=== PATIENT | female | born 1965 | race American Indian/Alaskan Native ===

== ENCOUNTER 2021-01-02 11:31 | Emergency (ER) | payer OTHER ==
--- NOTE | 2021-01-02 12:03 | Emergency Department Report ---
ED General Adult HPI - General Chief complaint: Weakness Stated complaint: weak PUI?: Yes Time Seen by Provider: 01/02/21 11:37 Source: patient, EMS (Verbal report received from emergency medical services. EMS documentation not available at time of chart dictation ), RN notes reviewed Mode of arrival: Stretcher Limitations: No Limitations - History of Present Illness Initial comments: The patient was evaluated in the emergency department for symptoms described in the history of present illness. He/she was evaluated in the context of the global COVID-19 pandemic, which necessitated consideration that the patient might be at risk for infection with the virus that causes COVID-19. Institutional protocols and algorithms that pertain to the evaluation of patients at risk for COVID-19 are in a state of rapid change based on information released by regulatory bodies including the CDC and federal and state organizations. These policies and algorithms were followed during the patient's care in the emergency department. Please note that these policies, procedures and recommendations changed on a rapid basis. Primary CARE doctor: Avery Past medical history: Hypertension, obesity, obstructive sleep apnea, noncompli ant with CPAP, not currently on home oxygen, reports having had Covid vaccination x2, questionable normal pressure hydrocephalus. During entire history and physical examination, I had on complete personal protective equipment. This is a 55-year-old female. She is not known to myself previously. She is brought to the hospital by emergency medical services. 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 The patient reports that her coworkers contacted 911 "because I looked weak." The patient complains of generalized weakness. She denies physical pain. She states she has developed shortness of breath since walking out to the EMS ambulance. The patient denies headache, neck pain, chest pain, abdominal pain, hematemesis, bright red blood per rectum. She reports that she had "blurry vision", for "a few seconds", at around 7:00 AM, "when all of my symptoms started." However, she believes that her vision is back to baseline. The patient denies loss of taste and smell. She denies urinary symptoms. She denies hematemesis and bright red blood per rectum. The patient states she feels generally weak, and short of breath. She denies DVT and pulmonary embolism risk factors. -: Gradual Consistency: constant Improves with: rest Worsens with: movement - Related Data Allergies Allergy/AdvReac Type Severity Reaction Status Date / Time acetaminophen [From Midrin] Allergy Severe Hives Verified 01/02/21 12:45 dichloralphenazone Allergy Severe Hives Verified 01/02/21 12:45 [From Midrin] isometheptene [From Midrin] Allergy Severe Hives Verified 01/02/21 12:45 ED Review of Systems ROS: Stated complaint: POSSIBLE STROKE Other details as noted in HPI Constitutional: malaise, weakness. denies: fever Eyes: vision change. denies: eye discharge ENT: denies: epistaxis Respiratory: shortness of breath Cardiovascular: denies: chest pain Gastrointestinal: denies: abdominal pain, hematemesis, melena, hematochezia Genitourinary: denies: dysuria Musculoskeletal: denies: back pain Neurological: weakness. denies: headache Hematological/Lymphatic: denies: easy bleeding ED Physical Exam - General Limitations: No Limitations General appearance: alert, in no apparent distress, obese - Head Head exam: Present: atraumatic, normocephalic - Eye Eye exam: Present: normal appearance, PERRL, EOMI, other (Visual acuity intact to finger counting, color perception, reading at a close distance). Absent: nystagmus - ENT ENT exam: Present: normal exam, normal orophraynx, mucous membranes moist, normal external ear exam - Neck Neck exam: Present: normal inspection, full ROM. Absent: tenderness, menin gismus - Respiratory Respiratory exam: Present: other (Pulmonary auscultation not performed secondary to lack of disposable stethoscope, and PPE conservation strategy). Absent: stridor - Cardiovascular Cardiovascular Exam: Present: other (Cardiac auscultation not performed secondary to lack of disposable stethoscope, and PPE conservation strategy) - GI/Abdominal GI/Abdominal exam: Present: soft. Absent: distended, tenderness, guarding, rebound, rigid, pulsatile mass - Extremities Exam Extremities exam: Present: normal inspection, full ROM, other (2+ pulses noted in the bilateral upper and lower extremities. There is no palpable cord. negative Homans sign. Muscular compartments are soft. The pelvis is stable.). Absent: pedal edema, calf tenderness - Back Exam Back exam: Present: normal inspection, full ROM. Absent: tenderness, CVA tenderness (R), CVA tenderness (L), paraspinal tenderness, vertebral tenderness - Neurological Exam Neurological exam: Present: alert, oriented X3, other (No facial droop. Tongue midline. Extraocular movements intact bilaterally. Facial sensation intact to light touch in V1, V2, V3 distribution bilaterally. 5 and a 5 strength in 4 extremities. Sensation intact to light touch in 4 extremities.) - Psychiatric Psychiatric exam: Present: anxious - Skin Skin exam: Present: warm, dry, intact, normal color. Absent: rash ED Course Vital Signs 01/02/21 01/02/21 01/02/21 11:35 12:27 12:30 Temperature 98.2 F Pulse Rate 71 72 72 Respiratory 13 14 10 L Rate Blood Pressure 156/89 156/89 Blood Pressure [Left] O2 Sat by Pulse 100 100 100 Oximetry 01/02/21 01/02/21 01/02/21 12:45 13:01 13:31 Temperature Pulse Rate 74 80 72 Respiratory 15 12 12 Rate Blood Pressure 156/89 156/89 156/89 Blood Pressure [Left] O2 Sat by Pulse 100 100 100 Oximetry 01/02/21 01/02/21 01/02/21 14:16 14:32 16:01 Temperature Pulse Rate 74 Respiratory 12 11 L Rate Blood Pressure 156/89 151/93 Blood Pressure 151/93 [Left] O2 Sat by Pulse 100 100 Oximetry 01/02/21 01/02/21 16:56 17:00 Temperature Pulse Rate 64 Respiratory 10 L Rate Blood Pressure 151/93 165/95 Blood Pressure [Left] O2 Sat by Pulse 100 100 Oximetry - Reevaluation(s) Reevaluation #1: 01/02/21 12:01 Differential diagnosis, including but not limited to: Hypoxemia, hypercarbia, pneumonia, pulmonary embolism, COVID-19, normal pressure hydrocephalus, in tracranial lesion, acute coronary syndrome, electrolyte derangement, dehydration Assessment and plan: 55-year-old female with a complaint of generalized weakness, transient visual change, not sure if monocular or binocular, but subjectively feels that vision back to baseline, without chest pain, DVT or pulmonary embolism risk factors, who reports noncompliance with CPAP, having had 2 COVID-19 vaccinations, generalized malaise and fatigue, without headache or neck pain. Place patient on isolation. Obtain CT scan of the brain, x-ray of the chest, plus minus CT angiogram of the chest, depending on D-dimer, and x-ray results. Obtain arterial blood gas on room air, administer supplemental oxygen if necessary, and appropriate laboratory studies. EKG abnormal without prior for comparison, but not consistent with STEMI. Reassess after initial data points. Anticipate admission. Have discussed this plan of care with the patient, who verbalized understanding. Reevaluation #2: 01/02/21 14:57 Please note that fever, tachycardia, hypotension documented by nursing team in error. As per nursing report, this patient has not spiked a fever or become tachycardic. 01/02/21 16:30 Have discussed the case with [facility] physician, Dr. Chua, with abnormal EKG, nonspecific symptoms, moderate risk for major adverse cardiac event as per heart score, we would recommend admission for diagnostic evaluation, and supportive care. Nursing team informed me that the patient ambulated with a steady gait, but was very short of breath while ambulating. Arterial blood gas demonstrates an essentially uncompensated respiratory alkalosis. 01/02/21 17:55 Awaiting callback and bed assignment from [facility]. Upon our last discussion, they informed us that they are currently waiting to hear back from [facility] regarding bed availability. Reevaluation #3: 01/02/21 18:57 Called [facility] with request for update. Have discussed with their physician coordinator, Dr Trotter. She advises me that it is unlikely that [facility] has any beds and would not be able to accommodate with an admission. She believes at [facility] may have beds, and she is waiting to hear back from them definitively. Have discussed this patient's life of stable here in the emergency room. Reevaluation #4: 01/02/21 19:33 Patient updated on plan of care. She is amenable to this plan of care. We are awaiting bed assignment from [facility]. She is asking for headache medicine, anxiety medicine, and is asking to eat. Orders initiated. Patient may eat. Care be transferred to the oncoming ER physician, to follow-up on [facility] bed ass ignment. ED Medical Decision Making - Lab Data Result diagrams: 01/02/21 12:30 01/02/21 12:30 Lab Results 01/02/21 01/02/21 01/02/21 Range/Units 12:15 12:30 12:30 WBC 8.1 (4.5-11.0) K/mm3 RBC 3.10 L (3.65-5.03) M/mm3 Hgb 12.5 (10.1-14.3) gm/dl Hct 34.6 (30.3-42.9) % MCV 112 H (79-97) fl MCH 40 H (28-32) pg MCHC 36 H (30-34) % RDW 13.9 (13.2-15.2) % Plt Count 290 (140-440) K/mm3 Lymph % (Auto) 43.1 H (13.4-35.0) % [place] % (Auto) 6.2 (0.0-7.3) % Eos % (Auto) 0.8 (0.0-4.3) % Baso % (Auto) 0.4 (0.0-1.8) % Lymph # (Auto) 3.5 (1.2-5.4) K/mm3 [place] # (Auto) 0.5 (0.0-0.8) K/mm3 Eos # (Auto) 0.1 (0.0-0.4) K/mm3 Baso # (Auto) 0.0 (0.0-0.1) K/mm3 Seg Neutrophils % 49.5 (40.0-70.0) % Seg Neutrophils # 4.0 (1.8-7.7) K/mm3 PT (12.2-14.9) Sec. INR (0.87-1.13) APTT (24.2-36.6) Sec. Thrombin Time (15.1-19.6) Sec. D-Dimer (0-234) ng/mlDDU ABG pH 7.613 H (7.320-7.450) POC ABG pCO2 20.2 L (32.0-48.0) mmHg ABG pCO2 mm Hg ABG pO2 (80.0-90.0) mm Hg POC ABG HCO3 20 ABG HCO3 (20.0-26.0) mmol/L ABG O2 Saturation 98.9 (0-100) ABG O2 Content (0.0-44) POC ABG Base Excess 0.6 ABG Base Excess (-2.0-3.0) mmol/L ABG Hemoglobin 12.7 (12.0-17.5) ABG Oxyhemoglobin 98.1 H (94-98) ABG Carboxyhemoglobin (0.0-5.0) % ABG Methemoglobin 0.3 (0.0-1.5) ABG Sodium 137.5 (136.0-145.0) mmol/L ABG Potassium 3.3 L (3.40-4.50) mmol/L ABG Chloride 103.0 (98-107) mmol/L ABG Glucose 105 H (65-95) mg/dL Oxyhemoglobin (95.0-99.0) % Carboxyhemoglobin 0.5 (0.5-1.5) FiO2 % FiO2 % 21 Lactic Acid (0.7-2.0) mmol/L CK-MB (CK-2) (0.0-4.0) ng/mL NT-Pro-B Natriuret Pep (0-900) pg/mL Arterial Blood Glucose 105 H (65-95) mg/dL Arterial Blood Ionized Calcium 4.7 (4.6-5.3) mg/dL Urine Color Yellow (Yellow) Urine Turbidity Clear (Clear) Urine pH 7.0 (5.0-7.0) Ur Specific [place] 1.006 (1.003-1.030) Urine Protein <15 mg/dl (Negative) mg/dL Urine Glucose (UA) Neg (Negative) mg/dL Urine Ketones 20 (Negative) mg/dL Urine Blood Neg (Negative) Urine Nitrite Neg (Negative) Urine Bilirubin Neg (Negative) Urine Urobilinogen 2.0 (<2.0) mg/dL Ur Leukocyte Esterase Neg (Negative) Urine WBC (Auto) 1.0 (0.0-6.0) /HPF Urine RBC (Auto) 2.0 (0.0-6.0) /HPF U Epithel Cells (Auto) 1.0 (0-13.0) /HPF Urine Bacteria (Auto) 1+ (Negative) /HPF Urine Mucus Few /HPF Plasma/Serum Alcohol (0-0.07) % 01/02/21 01/02/21 01/02/21 Range/Units 12:30 12:30 12:30 WBC (4.5-11.0) K/mm3 RBC (3.65-5.03) M/mm3 Hgb (10.1-14.3) gm/dl Hct (30.3-42.9) % MCV (79-97) fl MCH (28-32) pg MCHC (30-34) % RDW (13.2-15.2) % Plt Count (140-440) K/mm3 Lymph % (Auto) (13.4-35.0) % [place] % (Auto) (0.0-7.3) % Eos % (Auto) (0.0-4.3) % Baso % (Auto) (0.0-1.8) % Lymph # (Auto) (1.2-5.4) K/mm3 [place] # (Auto) (0.0-0.8) K/mm3 Eos # (Auto) (0.0-0.4) K/mm3 Baso # (Auto) (0.0-0.1) K/mm3 Seg Neutrophils % (40.0-70.0) % Seg Neutrophils # (1.8-7.7) K/mm3 PT 13.8 (12.2-14.9) Sec. INR 1.07 (0.87-1.13) APTT 27.4 (24.2-36.6) Sec. Thrombin Time 16.9 (15.1-19.6) Sec. D-Dimer < 135.00 (0-234) ng/mlDDU ABG pH (7.320-7.450) POC ABG pCO2 (32.0-48.0) mmHg ABG pCO2 mm Hg ABG pO2 (80.0-90.0) mm Hg POC ABG HCO3 ABG HCO3 (20.0-26.0) mmol/L ABG O2 Saturation (0-100) ABG O2 Content (0.0-44) POC ABG Base Excess ABG Base Excess (-2.0-3.0) mmol/L ABG Hemoglobin (12.0-17.5) ABG Oxyhemoglobin (94-98) ABG Carboxyhemoglobin (0.0-5.0) % ABG Methemoglobin (0.0-1.5) ABG Sodium (136.0-145.0) mmol/L ABG Potassium (3.40-4.50) mmol/L ABG Chloride (98-107) mmol/L ABG Glucose (65-95) mg/dL Oxyhemoglobin (95.0-99.0) % Carboxyhemoglobin (0.5-1.5) FiO2 % FiO2 % Lactic Acid 2.40 H* (0.7-2.0) mmol/L CK-MB (CK-2) 1.5 (0.0-4.0) ng/mL NT-Pro-B Natriuret Pep (0-900) pg/mL Arterial Blood Glucose (65-95) mg/dL Arterial Blood Ionized Calcium (4.6-5.3) mg/dL Urine Color (Yellow) Urine Turbidity (Clear) Urine pH (5.0-7.0) Ur Specific [place] (1.003-1.030) Urine Protein (Negative) mg/dL Urine Glucose (UA) (Negative) mg/dL Urine Ketones (Negative) mg/dL Urine Blood (Negative) Urine Nitrite (Negative) Urine Bilirubin (Negative) Urine Urobilinogen (<2.0) mg/dL Ur Leukocyte Esterase (Negative) Urine WBC (Auto) (0.0-6.0) /HPF Urine RBC (Auto) (0.0-6.0) /HPF U Epithel Cells (Auto) (0-13.0) /HPF Urine Bacteria (Auto) (Negative) /HPF Urine Mucus /HPF Plasma/Serum Alcohol (0-0.07) % 01/02/21 01/02/21 01/02/21 Range/Units 12:30 12:30 12:30 WBC (4.5-11.0) K/mm3 RBC (3.65-5.03) M/mm3 Hgb (10.1-14.3) gm/dl Hct (30.3-42.9) % MCV (79-97) fl MCH (28-32) pg MCHC (30-34) % RDW (13.2-15.2) % Plt Count (140-440) K/mm3 Lymph % (Auto) (13.4-35.0) % [place] % (Auto) (0.0-7.3) % Eos % (Auto) (0.0-4.3) % Baso % (Auto) (0.0-1.8) % Lymph # (Auto) (1.2-5.4) K/mm3 [place] # (Auto) (0.0-0.8) K/mm3 Eos # (Auto) (0.0-0.4) K/mm3 Baso # (Auto) (0.0-0.1) K/mm3 Seg Neutrophils % (40.0-70.0) % Seg Neutrophils # (1.8-7.7) K/mm3 PT (12.2-14.9) Sec. INR (0.87-1.13) APTT (24.2-36.6) Sec. Thrombin Time (15.1-19.6) Sec. D-Dimer (0-234) ng/mlDDU ABG pH 7.581 H (7.320-7.450) POC ABG pCO2 (32.0-48.0) mmHg ABG pCO2 21.3 mm Hg ABG pO2 138.2 H (80.0-90.0) mm Hg POC ABG HCO3 ABG HCO3 19.6 L (20.0-26.0) mmol/L ABG O2 Saturation 99.0 (0-100) ABG O2 Content 17.2 (0.0-44) POC ABG Base Excess ABG Base Excess -0.5 (-2.0-3.0) mmol/L ABG Hemoglobin 12.4 (12.0-17.5) ABG Oxyhemoglobin (94-98) ABG Carboxyhemoglobin 1.2 (0.0-5.0) % ABG Methemoglobin 0.4 (0.0-1.5) ABG Sodium (136.0-145.0) mmol/L ABG Potassium (3.40-4.50) mmol/L ABG Chloride (98-107) mmol/L ABG Glucose (65-95) mg/dL Oxyhemoglobin 97.4 (95.0-99.0) % Carboxyhemoglobin (0.5-1.5) FiO2 21 % FiO2 % Lactic Acid (0.7-2.0) mmol/L CK-MB (CK-2) (0.0-4.0) ng/mL NT-Pro-B Natriuret Pep 75.31 (0-900) pg/mL Arterial Blood Glucose (65-95) mg/dL Arterial Blood Ionized Calcium (4.6-5.3) mg/dL Urine Color (Yellow) Urine Turbidity (Clear) Urine pH (5.0-7.0) Ur Specific [place] (1.003-1.030) Urine Protein (Negative) mg/dL Urine Glucose (UA) (Negative) mg/dL Urine Ketones (Negative) mg/dL Urine Blood (Negative) Urine Nitrite (Negative) Urine Bilirubin (Negative) Urine Urobilinogen (<2.0) mg/dL Ur Leukocyte Esterase (Negative) Urine WBC (Auto) (0.0-6.0) /HPF Urine RBC (Auto) (0.0-6.0) /HPF U Epithel Cells (Auto) (0-13.0) /HPF Urine Bacteria (Auto) (Negative) /HPF Urine Mucus /HPF Plasma/Serum Alcohol < 0.01 (0-0.07) % Vital Signs 01/02/21 01/02/21 01/02/21 11:35 12:27 12:30 Temperature 98.2 F Pulse Rate 71 72 72 Respiratory 13 14 10 L Rate Blood Pressure 156/89 156/89 O2 Sat by Pulse 100 100 100 Oximetry 01/02/21 12:45 Temperature Pulse Rate 74 Respiratory 15 Rate Blood Pressure 156/89 O2 Sat by Pulse 100 Oximetry - EKG Data -: EKG Interpreted by Co EKG shows normal: sinus rhythm Rate: normal - EKG Data When compared to previous EKG there are: previous EKG unavailable 01/02/21 12:03 EKG interpreted at 11: 35 Sinus rhythm, 76 bpm. Normal axis, left ventricular hypertrophy, QTC prolonged, poor R wave progression. This is an abnormal EKG. This is not a STEMI. There is no prior EKG available for comparison. - Radiology Data Radiology results: pending, report reviewed, image reviewed [facility] [address] [place] [address] XRay Report Signed Patient: ABHIJIT ALVARADO MR#: [id number] 6 : 1965 Acct:[id number] Age/Sex: 55 / F ADM Date: 01/02/21 Loc: ED Attending Dr: Ordering Physician: YOLANDE DEL VALLE MD Date of Service: 01/02/21 Procedure(s): XR chest 1V ap Accession Number(s): [id number] cc: YOLANDE DEL VALLE MD Fluoro Time In Minutes: CHEST 1 VIEW 01/02/2021 11:48 AM INDICATION / CLINICAL INFORMATION: Shortness of breath and weakness. COMPARISON: None available. FINDINGS: SUPPORT DEVICES: None. HEART / MEDIASTINUM: No significant abnormality. LUNGS / PLEURA: No significant pulmonary or pleural abnormality. No pneumothorax. ADDITIONAL FINDINGS: No significant additional findings. IMPRESSION: 1. No acute findings. Signer Name: Arvind Murphy MD Signed: 01/02/2021 1:01 PM Workstation Name: [facility] [id number] Transcribed By: NEYDA Dictated By: Arvind Murphy MD Electronically Authenticated By: Arvind Murphy MD Signed Date/Time: 01/02/21 130 DD/ 1301 CT head/brain wo con INDICATION: Weakness, blurry vision. TECHNIQUE: Routine CT head without contrast. All CT scans at this location are performed using CT dose reduction for ALARA by means of automated exposure control. COMPARISON: None. FINDINGS: BRAIN / INTRACRANIAL CONTENTS: No acute hemorrhage, mass effect, midline shift, or hydrocephalus. No appreciable acute large territorial or lacunar infarct. No chronic infarct or focal atrophy. Normal brain volume and ventricular/sulcal size for age. ORBITS: No significant abnormality of visualized orbits. SINUSES / MASTOIDS: No significant abnormality of visualized sinuses and mastoid air cells. ADDITIONAL FINDINGS: None. IMPRESSION: 1. No acute intracranial abnormality. Signer Name: Arvind Murphy MD Signed: 01/02/2021 1:50 PM Workstation Name: [facility] [address] [id number] Cat Scan Report Signed Patient: ABHIJIT ALVARADO MR#: [id number] 6 : 1965 Acct:[id number] Age/Sex: 55 / F ADM Date: 01/02/21 Loc: ED Attending Dr: Ordering Physician: YOLANDE DEL VALLE MD Date of Service: 01/02/21 Procedure(s): CT angio chest Accession Number(s): [id number] cc: YOLANDE DEL VALLE MD CTA CHEST WITH CONTRAST INDICATION / CLINICAL INFORMATION: MAIN. TECHNIQUE: Axial CT images were obtained through the chest after injection of 100 cc of Omnipaque 350 IV contrast. 3 plane MIP and/or 3D reconstructions were produced. All CT scans at this location are performed using CT dose reduction for ALARA by means of automated exposure control. COMPARISON: None available. FINDINGS: PULMONARY ARTERIES: No pulmonary emboli. THORACIC AORTA: No significant abnormality. HEART: No significant abnormality. CORONARY ARTERY CALCIFICATION: None. MEDIASTINUM / GIRISH: No significant abnormality. PLEURA: No pleural effusion. No pneumothorax. LUNGS: No acute air space or interstitial disease. ADDITIONAL FINDINGS: None. UPPER ABDOMEN: There is cholelithiasis. SKELETAL STRUCTURES: No significant osseous abnormality. IMPRESSION: 1. No CT evidence for pulmonary embolism. 2. Cholelithiasis Signer Name: Vito Virgen MD Signed: 01/02/2021 3:01 PM Workstation Name: [id number] Transcribed By: SS Dictated By: Vito Virgen MD Electronically Authenticated By: Vito Virgen MD Signed Date/Time: 01/02/21 1501 DD/ 1456 Critical care attestation.: If time is entered above; I have spent that time in minutes in the direct care of this critically ill patient, excluding procedure time. ED Disposition Clinical Impression: Suspected 2019 novel coronavirus infection, Respiratory alkalosis, Obesity (BMI 30-39.9), Shortness of breath, Abnormal EKG, Visual disturbance [facility] Is pt being admited?: No Does the pt Need Aspirin: No Condition: Good Referrals: PAULETTE,AVERY [Other] - 3-5 Days Heart Score - HEART Score History: Slightly suspicious EKG: Non-specific Age: 45-65 Risk factors: > 3 risk factors or hx of atherosclerotic disease Troponin: < normal limit HEART Score: 4 - EKG Read Time Time EKG Completed: 11:35 EKG Read Time: 11:35 - Critical Actions Critical Actions: 4-6 pts:12-16.6% risk of adverse cardiac event. Should be admitted
[2021-01-02 12:35] LABS: ABG Base Excess -0.5 mmol/L (-2.0-3.0); ABG HCO3 19.6 mmol/L (20.0-26.0); ABG Methemoglobin 0.4 % (0.0-1.5); ABG PCO2 21.3 mm Hg; ABG PH 7.581 pH Units (7.350-7.450); ABG PO2 138.2 mm Hg (80.0-90.0)
[2021-01-02 13:00] LABS: Bacteria,Urine 1+ /HPF (Negative); Bilirubin,Urine NEG (Negative); Blood,Urine NEG (Negative); Color,Urine Yellow (Yellow); Mucus,Urine FEW /HPF; Protein,Urine <15 mg/dL mg/dL (Negative)
--- NOTE | 2021-01-02 13:05 | XRay Report ---
CHEST 1 VIEW 01/02/2021 11:48 AM INDICATION / CLINICAL INFORMATION: Shortness of breath and weakness. COMPARISON: None available. FINDINGS: SUPPORT DEVICES: None. HEART / MEDIASTINUM: No significant abnormality. LUNGS / PLEURA: No significant pulmonary or pleural abnormality. No pneumothorax. ADDITIONAL FINDINGS: No significant additional findings. IMPRESSION: 1. No acute findings. Signer Name: Arvind Murphy MD Signed: 01/02/2021 1:01 PM Workstation Name: [id number]
[2021-01-02 13:23] LABS: Basophils % (Auto) 0.4 % (0.0-1.8); Eosinophils # (Auto) 0.1 K/mm3 (0.0-0.4); Eosinophils % (Auto) 0.8 % (0.0-4.3); Hematocrit 34.6 % (30.3-42.9); Hemoglobin 12.5 gm/dl (10.1-14.3); Lymphocytes # (Auto) 3.5 K/mm3 (1.2-5.4); Lymphocytes % (Auto) 43.1 % (13.4-35.0); Mean Corpuscular HGB Conc 36 % (30-34); Mean Corpuscular Volume 112 fl (79-97); Monocytes # (Auto) 0.5 K/mm3 (0.0-0.8); Monocytes % (Auto) 6.2 % (0.0-7.3); Platelet Count 290 K/mm3 (140-440); Red Cell Distribution Width 13.9 % (13.2-15.2)
[2021-01-02 13:33] LABS: INR 1.07 (0.87-1.13)
[2021-01-02 13:34] LABS: Partial Thromboplastin Time 27.4 Sec. (24.2-36.6)
[2021-01-02 13:35] LABS: Thrombin Time 16.9 Sec. (15.1-19.6)
[2021-01-02 13:45] LABS: Creatine Kinase MB 1.5 ng/mL (0.0-4.0)
[2021-01-02 13:49] LABS: Alanine Aminotransferase 14 units/L (7-56); Albumin 4.4 g/dL (3.9-5); BUN/Creatinine Ratio 20; Blood Urea Nitrogen 20 mg/dL (7-17); Calcium 9.9 mg/dL (8.4-10.2); Hemolysis Index 16
[2021-01-02] MEDS ORDERED: SODIUM CHLORIDE 0.9% 500 ML 500 ML IV ONE (14:01)
[2021-01-02] MEDS ORDERED: SODIUM CHLORIDE 0.9% IV ONE (14:54)
[2021-01-02] MEDS ORDERED: cefTRIAXone/NS 2 GM/100 ML 2 GM/100 ML BAG IV ONE (14:54)
[2021-01-02] MEDS ORDERED: dexAMETHasone 4 MG/ML VIAL IV ONE (14:54)
--- NOTE | 2021-01-02 14:54 | Cat Scan Report ---
CT head/brain wo con INDICATION: Weakness, blurry vision. TECHNIQUE: Routine CT head without contrast. All CT scans at this location are performed using CT dos e reduction for ALARA by means of automated exposure control. COMPARISON: None. FINDINGS: BRAIN / INTRACRANIAL CONTENTS: No acute hemorrhage, mass effect, midline shift, or hydrocephalus. No appreciable acute large territorial or lacunar infarct. No chronic infarct or focal atrophy. Normal b rain volume and ventricular/sulcal size for age. ORBITS: No significant abnormality of visualized orbits. SINUSES / MASTOIDS: No significant abnormality of visualized sinuses and mastoid air cells. ADDITIONAL FINDINGS: None. IMPRESSION: 1. No acute intracranial abnormality. Signer Name: Arvind Murphy MD Signed: 01/02/2021 2:50 PM Workstation Name: [email or web address]
--- NOTE | 2021-01-02 15:06 | Cat Scan Report ---
CTA CHEST WITH CONTRAST INDICATION / CLINICAL INFORMATION: MAIN. TECHNIQUE: Axial CT images were obtained through the chest after injection of 100 cc of Omnipaque 350 IV contrast. 3 plane MIP and/or 3D reconstructions were produced. All CT scans at this location are performed using CT dose reduction for ALARA by means of automated exposure control. COMPARISON: None available. FINDINGS: PULMONARY ARTERIES: No pulmonary emboli. THORACIC AORTA: No significant abnormality. HEART: No significant abnormality. CORONARY ARTERY CALCIFICATION: None. MEDIASTINUM / GIRISH: No significant abnormality. PLEURA: No pleural effusion. No pneumothorax. LUNGS: No acute air space or interstitial disease. ADDITIONAL FINDINGS: None. UPPER ABDOMEN: There is cholelithiasis. SKELETAL STRUCTURES: No significant osseous abnormality. IMPRESSION: 1. No CT evidence for pulmonary embolism. 2. Cholelithiasis Signer Name: Vito Virgen MD Signed: 01/02/2021 3:01 PM Workstation Name: [id number]
[2021-01-02] MEDS ORDERED: ASPIRIN 81 MG TAB CHEW PO ONE (16:32)
[2021-01-02] MEDS ORDERED: METOCLOPRAMIDE 10 MG/2 ML INJ IV ONE (19:31)
[2021-01-02] MEDS ORDERED: ALPRAZolam 0.5 MG TAB PO PRN (19:31)
[2021-01-02] MEDS ORDERED: METOCLOPRAMIDE 10 MG/2 ML INJ IV PRN (19:31)
[2021-01-02] MEDS ORDERED: NITROGLYCERIN 0.4 MG TAB SUBL SL PRN (19:31)
[2021-01-02] MEDS ORDERED: diphenhydrAMINE 50 MG/ML VIAL IV ONE (19:31)
[2021-01-02] MEDS ORDERED: ASPIRIN 81 MG TAB CHEW ONE (21:20)
[2021-01-02] MEDS ORDERED: FAMOTIDINE 20 MG/2 ML INJ IV SCH (22:00)
[2021-01-02 22:30] VITALS: BP 154/73
== END 2021-01-03 | disposition short-term general hospital (02) ==
LOC: ED 11:31
DX: E87.3 Alkalosis (principal); E66.9 Obesity, unspecified; H53.9 Unspecified visual disturbance; R94.31 Abnormal electrocardiogram [ECG] [EKG]; Z20.822 Contact with and (suspected) exposure to COVID-19; Z88.8 Allergy status to other drugs, medicaments and biological substances
CPT/HCPCS: 36415; 70450; 71045; 71275; 80053; 81001; 82140; 82550; 82553; 82728; 82803; 82805; 83615; 83735; 83880; 84145; 84484; 85025; 85379; 85610; 85670; 85730; 86140; 87040; 93005; 96374; 96375; 99285; J1200; J2765; 80320; G0480